=== PATIENT | male | born 1975 | race Caucasian/White ===

== ENCOUNTER 2022-05-12 17:03 | Emergency (ER) | payer OTHER, SELFPAY ==
[2022-05-12 17:13] VITALS: BP 154/111; PULSE 73; RESP 16; TEMP 36.3; O2SAT 98; BMI 29.0
[2022-05-12 17:30] VITALS: BP 145/105; PULSE 72; RESP 16; O2SAT 97
--- NOTE | 2022-05-12 17:40 | ED_ITS ---
HPI - Weakness General Chief complaint: Weakness Stated complaint: Extreme Fatigue Post Colonoscopy Time Seen by Provider: 05/12/22 17:06 Source: patient Mode of arrival: ambulatory Limitations: no limitations History of Present Illness HPI Narrative: 46-year-old male who underwent initial screening colonoscopy I yesterday presents with weakness today. Weakness is nonspecific just feeling very fatigued. No neurological changes. Patient reports that he did is bowel prep as directed but admits that he did not drink as much fluid as was recommended. He had some difficulty figuring out what was safe to drink in the clear liquid protocols because of the dyes. The colonoscopy was otherwise uncomplicated. He says that he was a little dehydrated. Two small polyps were removed. He went home and had a good size lunch, took a 4 hour nap and then had an uncomplicated dinner. He slept normally last night and then attempted to start his day today. He felt very fatigued and laid back down for few hours again. When he went to get up again, he found that he was unable to run errands without feeling overly fatigued. There has been no fever. No nausea no vomiting. He did have some crampy gas pain late this morning and did have a bowel movement which relieved his pain. There is no blood in his stools. No dysuria. No fevers. No focal neurological changes. Has continued to drink some fluids without improvement in his symptoms. No Tylenol or ibuprofen. He called the triage line and was advised to come to the emergency department. Past medical history is notable for hypertension though he admits that he does not take his prescribed medication for this. But he does state that he has not taken any diuretics within the last few days that would worsen electrolyte abnormalities. No alcohol, no caffeine. His past medical history is otherwise notable for history of prior kidney stones and concussions and migraines. No other prescription medicines. Allergies are to opiates which is really just an intolerance of sounds like he was given oxycodone for kidney stone and he had agitation. It does not sound as though he had any difficulties with the anesthesia yesterday. ROS notable for the nonspecific generalized symptoms as above only, otherwise denies times 12 systems. Related Data Allergies Allergy/AdvReac Type Severity Reaction Status Date / Time opiodes AdvReac Uncoded 05/12/22 17:13 PFSH PFS Social History Smoking Status: Never smoker Do you use any of these nicotine containing products: None Second hand tobacco smoke exposure: No How often do you have a drink containing alcohol: 4 or more times a week How many standard drinks containing alcohol do you have on a typical day: 3 or 4 How often do you have six or more drinks on one occasion: Less than monthly AUDIT-C Alcohol total score: 6 Non-prescribed substance use: denies use service: No Exam Const: Vital Signs, click to edit/add: Vital Signs - 24 hr 05/12/22 17:13 Temperature 97.4 F L Pulse Rate [Pulse Oximeter] 73 Respiratory Rate 16 Blood Pressure [Ri ght Upper Arm] 154/111 H Pulse Oximetry 98 Oxygen Delivery Me thod Room Air Documenting provider has reviewed patient's vital signs: yes Common normals: no apparent distress General appearance: cooperative and well kempt HENMT: Common normals: normocephalic Head and scalp: normocephalic Mo uth: oral and palatal mucosa normal Throat: posterior oropharynx normal Eye: Common normals: conjunctivae normal and no scleral icterus Conjunctiva: conjunctiva(e) normal Neck & C-Spine: Common normals: no lymphadenopathy Resp: Common normals: normal respiratory effort, no use of accessory muscles and clear to auscultation bilaterally Effort & inspection: able to speak in complete sentences Auscultation: clear to auscultation bilaterally Cardio: Common normals: regular rate, regular rhythm, S1 normal heart sound, S2 normal heart sound, no murmurs and peripheral pulses 2+ throughout Rate: regular rate Rhythm: regular rhythm Heart sounds: S1 normal and S2 normal Peripheral pulses: pulses 2+ throughout GI: Common normals: Normal to inspection, nondistended, normoactive bowel sounds present, soft to palpation, non-tender, no hepatosplenomegaly and no masses Palpation: soft and no hepatosplenomegaly Extremity: Common normals: normal capillary refill and no pedal edema Neuro: Speech: speech normal Motor exam: no tremor noted and no movement abnormalities noted Psych: Common normals: speech normal Appearance: well kempt Attitude: engaged Speech: normal speech Insight: insight good Judgement: judgment good Skin: Common normals: no rashes or lesions noted General skin exam: no rashes or lesions noted Course Course Hospital Course: Patient will have an IV placed, basic labs to look for electrolyte abnormalities, dehydration, inflammatory markers. Swabs for influenza and COVID. LR will be started while we await lab results. Vital Signs Vital signs: Initial Vital Signs Temperature 97.4 F L 05/12/22 17:13 Temperature Source Temporal Artery Scan 05/12/22 17:13 Pulse Rate 73 05/12/22 17:13 Pulse Rhythm 05/12/22 17:13 Respiratory Rate 16 05/12/22 17:13 Blood Pressure 154/111 H 05/12/22 17:13 Blood Pressure Mean 125 05/12/22 17:13 Blood Pressure Position Supine 05/12/22 17:13 Pulse Oximetry 98 05/12/22 17:13 Oxygen Delivery Method 05/12/22 17:13 Vital Signs Temperature 97.4 F L 05/12/22 17:13 Pulse Rate 73 05/12/22 17:13 Respiratory Rate 16 05/12/22 17:13 Blood Pressure 154/111 H 05/12/22 17:13 Pulse Oximetry 98 05/12/22 17:13 Oxygen Delivery Method 05/12/22 17:13 Temperature 97.4 F L 05/12/22 17:13 Pulse Rate 73 05/12/22 17:13 Respiratory Rate 16 05/12/22 17:13 Blood Pressure 154/111 H 05/12/22 17:13 Pulse Oximetry 98 05/12/22 17:13 Oxygen Delivery Method 05/12/22 17:13 MDM - Weakness MDM Narrative Medical decision making narrative: Differential diagnosis including viral syndrome, gastric perforation, hemorrhage with anemia, electrolyte abnormality, dehydration. Most likely diagnosis is dehydration and electrolyte abnormality beginning LR, awaiting labs. Verbalizes agreement. Update 0 700 patient feeling better after IV fluids. Labs reviewed, reassuring. All questions answered, see discharge instructions Lab Data Attestation: I reviewed the patient's lab results. Labs: Lab Results 05/12/22 05/12/22 05/12/22 Range/Units 17:41 17:50 17:50 WBC 5.65 (4.50-11.00) K/uL RBC 4.88 (4.30-5.90) m/uL Hgb 15.7 (13.5-17.5) gm/dL Hct 44.1 (37.0-53.0) % MCV 90 (80-100) fL MCH 32 (26-34) pg MCHC 36 (32-36) gm/dL RDW Coeff of Rashida 10.9 L (11.5-15.5) % Plt Count 191 (140-440) K/uL Neut % (Auto) 64.9 (42.0-72.0) % Lymph % (Auto) 20.9 (20-44) % [place] % (Auto) 10.8 (0.0-11.0) % Eos % (Auto) 2.5 (0.0-7.0) % Baso % (Auto) 0.7 (0.0-3.0) % Neut # (Auto) 3.67 (1.7-7.0) K/uL Lymph # (Auto) 1.18 (0.90-2.90) K/uL [place] # (Auto) 0.60 (0.00-0.90) K/UL Eos # (Auto) 0.14 (0.00-0.50) K/uL Baso # (Auto) 0.04 (0.00-0.30) K/uL Abs Immat Gran (auto) 0.01 (0.00-0.30) K/uL Imm/Tot Granulo (auto) 0.2 % Sodium 139 (135-149) mmol/L Potassium 4.0 (3.6-5.1) mmol/L Chloride 105 (96-114) mmol/L Carbon Dioxide 25 (20-32) mmol/L BUN 17 (5-24) mg/dL Creatinine 0.8 (0.5-1.5) mg/dL Estimated Creat Clear 123.94 Estimated GFR 109 ml/min Glucose 89 (60-115) mg/dL Calcium 9.0 (8.4-10.6) mg/dL Magnesium 2.0 (1.5-2.6) mg/dL C-Reactive Protein < 0.5 L (0.5-1.0) mg/dL SARS-CoV-2 (PCR) Negative SARS-CoV-2 (Negative) Influenza Type A (PCR) Negative PCR FLU A (Negative) Influenza Type B (PCR) Negative PCR FLU B (Negative) Discharge Plan Discharge Clinical Impression: Fatigue Patient Disposition: Home w/ Parent or Adult Condition: Stable Instructions: Fatigue (ED) Additional Instructions: All of your labs and electrolytes look normal. This is good news. I also not seeing any signs of a serious infection, this is also reassuring. You have not lost a significant amount of blood either. I suspect your symptoms are hangover effect from the sedatives that you were given for the colonoscopy or the start of a different viral infection that we cannot test for. Nonetheless everything appears to be medically sound. I suspect you will start feeling better t omorrow. Continue to get plenty of rest, drink plenty of fluids and resume all of your normal activities. Follow up with your primary care provider if you are not continuing to show signs of improvement after a couple more days. Come back to the emergency department if your too fatigued to eat and drink or care for herself. Come back to the ED if you have severe fever, severe abdominal pain or other new and worrisome symptoms. Activity Level: No Restrictions Discharge Diet: Regular Stand Alone Forms: [employer] Info Instructions
[2022-05-12] MEDS: LACTATED RINGERS 1000 ML 1,000 ML IV (17:54)
[2022-05-12 17:59] LABS: Basophils Absolute Auto 0.04 K/uL (0.00-0.30); Basophils Percent Auto 0.7 % (0.0-3.0); Eosinophils Absolute Auto 0.14 K/uL (0.00-0.50); Eosinophils Percent Auto 2.5 % (0.0-7.0); Hematocrit 44.1 % (37.0-53.0); Hemoglobin* 15.7 gm/dL (13.5-17.5); Immature Granulocytes Abs Auto 0.01 K/uL (0.00-0.30); Immature Granulocytes Pct Auto 0.2 %; Lymphocytes Absolute Auto 1.18 K/uL (0.90-2.90); Lymphocytes Percent Auto 20.9 % (20-44); Mean Corpuscular HGB Conc 36 gm/dL (32-36); Mean Corpuscular Hemoglobin 32 pg (26-34); Mean Corpuscular Volume 90 fL (80-100); Monocytes Percent Auto 10.8 % (0.0-11.0); Neutrophils Absolute Auto 3.67 K/uL (1.7-7.0); Neutrophils Percent Auto 64.9 % (42.0-72.0); Platelet Count* 191 K/uL (140-440); RDW Coefficient of Variation % 10.9 % (11.5-15.5); Red Blood Count 4.88 m/uL (4.30-5.90); White Blood Count* 5.65 K/uL (4.50-11.00)
[2022-05-12 18:00] VITALS: BP 160/117; PULSE 67; O2SAT 97
[2022-05-12 18:01] LABS: Slide Review Reflex No
[2022-05-12 18:14] LABS: Chloride* 105 mmol/L (96-114); Sodium* 139 mmol/L (135-149)
[2022-05-12 18:17] LABS: Creatinine* 0.8 mg/dL (0.5-1.5); Est. Creatinine Clearance* 123.94; Estimated Glomerular Filt Rate 109 ml/min
[2022-05-12 18:18] LABS: Blood Urea Nitrogen* 17 mg/dL (5-24); Carbon Dioxide* 25 mmol/L (20-32); Glucose* 89 mg/dL (60-115)
[2022-05-12 18:21] LABS: C Reactive Protein* < 0.5 mg/dL (0.5-1.0)
[2022-05-12 18:29] LABS: PCR FLU A Negative PCR FLU A (Negative); PCR FLU B Negative PCR FLU B (Negative)
[2022-05-12 18:30] VITALS: BP 156/113; PULSE 70; O2SAT 98
[2022-05-12 18:35] LABS: SARS PCR* Negative SARS-CoV-2 (Negative)
[2022-05-12 19:00] VITALS: BP 168/135; PULSE 73; RESP 16; O2SAT 97
== END 2022-05-12 19:06 | disposition home or self-care (01) ==
PROVIDERS: Emergency Provider Family Medicine
DX: R53.83 Other fatigue (principal)
CPT/HCPCS: 36415; 80048; 83735; 85025; 86140; 87631; 96360; 99283; J7120

== ENCOUNTER 2024-03-07 09:44 | Outpatient (RCR) | payer OTHER, SELFPAY | END 2024-06-07 14:39 | disposition home or self-care (01) | PROVIDERS: Visit Provider Student in an Organized Health Care Education/Training Program | DX: H81.90 Unspecified disorder of vestibular function, unspecified ear (principal); R26.81 Unsteadiness on feet; Z51.89 Encounter for other specified aftercare | CPT/HCPCS: 97112; 97161 ==